=== PATIENT | female | born 1965 | race Caucasian/White ===

== ENCOUNTER → 2021-05-23 08:58 | Outpatient (CLI) | payer OTHER, SELFPAY ==
--- NOTE | ~2021-05-23 | US_ITS ---
EXAMINATION: US transvaginal EXAM DATE: 05/23/2021 09:39 INDICATION: Postmenopausal bleeding. TECHNIQUE: Pelvic transvaginal sonogram was performed. There are multiple grayscale and Doppler imag es available for interpretation. There is no prior study for comparison. FINDINGS: Uterus measures 6.6 x 3.4 x 4.6 cm, is anteverted and morphologically normal. Endometrial stripe measures 1-2 mm, within normal limits. There is no free pelvic fluid. Right adnexa: The ovary is not identified. There is no adnexal mass. Left adnexa: The ovary is not identified. There is no adnexal mass. IMPRESSION: Unremarkable uterus. Reviewed, dictated and finalized at location A. GAGE ANALYST IMPRESSION: Unremarkable uterus.
== END ==
PROVIDERS: Visit Provider Obstetrics & Gynecology Gynecology
DX: N95.0 Postmenopausal bleeding (principal)
CPT/HCPCS: 76830

== ENCOUNTER → 2021-07-02 15:28 | Outpatient (CLI) | payer OTHER, SELFPAY ==
--- NOTE | ~2021-07-02 | MM_ITS ---
EXAMINATION: MM screening [facility] BI w enrrique HISTORY: Screening mammogram TECHNIQUE: Craniocaudal and mediolateral oblique 3-D tomosynthesis images were obtained and synthetic 2-D images were generated. CAD analysis was submitted and interpreted. COMPARISON: 10/12/2018, 02/14/2018, 02/08/2018 BREAST PARENCHYMAL COMPOSITION: The breasts are extremely dense, which lowers the sensitivity of mamm ography. FINDINGS: There is no evidence of suspicious mass, calcification, or architectural distortion to sugg est malignancy in either breast. There has been no suspicious interval change. IMPRESSION: 1. No mammographic evidence of malignancy. 2. Recommend routine screening mammography in one year. BI-RADS Category 1: Negative Reviewed, dictated and finalized at location A. IGN CORRESPONDENT
== END ==
PROVIDERS: Visit Provider Nurse Practitioner
DX: Z12.31 Encounter for screening mammogram for malignant neoplasm of breast (principal)
CPT/HCPCS: 77063; 77067

== ENCOUNTER → 2021-08-27 10:11 | Outpatient (CLI) | payer OTHER, SELFPAY ==
--- NOTE | ~2021-08-27 | DEXA_ITS ---
Bone Density Report Name: PATSY RIVAS Age: 56 Sex: Female Ethnicity: White Date of : 1965 Indication: postmenopausal; screening for osteoporosis; height loss; Referring Provider: GARRICK, ZHAO Study: Bone densitometry was performed. Exam Date: August 27, 2021 Accession number: [id number] Bone Density: Region BMD T-score Z-score Classification AP Spine (L1-L4) 0.875 -1.6 -0.4 Osteopenia Femoral Neck (Left) 0.665 -1.7 -0.5 Osteopenia Total Hip (Left) 0.820 -1.0 -0.2 Normal Femoral Neck (Right) 0.735 -1.0 0.1 Normal Total Hip (Right) 0.877 -0.5 0.3 Normal Total Hip Mean 0.849 -0.8 0.1 Normal World Health Organization criteria for BMD impression classify patients as: Normal (T-score at or above -1.0), Osteopenia (T-score between -1.0 and -2.5), or Osteoporosis (T-score at or below -2.5). 10-year Fracture Risk(1): Major Osteoporotic Fracture 7.2% Hip Fracture 0.7% Reported Risk Factors: [place] (), Neck BMD=0.665, BMI=22.8 (1) FRAX(R) Version 3.08. Fracture probability calculated for an untreated patient. Fracture probability may be lower if the patient has received treatment. Previous Exams: Region Exam Age BMD T-score BMD Change BMD Change Date g/cm2 vs Baseline vs Previous AP Spine(L1-L4) 08/27/2021 56 0.875 -1.6 -0.133* -0.133* 10/30/2015 50 1.008 -0.4 Total Hip(Left) 08/27/2021 56 0.820 -1.0 -0.099* -0.099* 10/30/2015 50 0.919 -0.2 Total Hip(Right) 08/27/2021 56 0.877 -0.5 -0.096* -0.096* 10/30/2015 50 0.973 0.3 *Denotes significance at 95% confidence level, LSC for AP Spine = 0.022 g/cm2, LSC for Total Hip = 0.027 g/cm2 Clinical Information Provided by Patient: Has used the following medications: Vitamin D Patient maximum height was 68.5 Menopause Age: 51 Does not regularly consume dairy products Drinks caffeinated beverages Onset of menses at age 13 Number of children 2 Impression: The patient has low bone mass, based on the Left Femoral Neck T-score. The patient has an estimated ten-year risk of hip fracture of 0.7% and an estimated ten-year risk of major fracture of 7.2%, based on the WHO FRAX algorithm. The BMD for the AP Spine(L1-L4) decreased, changing by -0.133 since the last DXA exam. The BMD for the Total Hip(Left) decreased, changing by -0.099 since the last DXA exam. The BMD for the Total Hip(Right) decreased, changing by -
== END ==
PROVIDERS: Visit Provider Nurse Practitioner
DX: Z78.0 Asymptomatic menopausal state (principal); Z13.820 Encounter for screening for osteoporosis; M85.88 Other specified disorders of bone density and structure, other site; M85.852 Other specified disorders of bone density and structure, left thigh
CPT/HCPCS: 77080

== ENCOUNTER → 2021-11-19 14:18 | Outpatient (CLI) | payer OTHER, SELFPAY ==
--- NOTE | ~2021-11-19 | CT_ITS ---
EXAMINATION: CT pelvis wo/w con DATE: 11/19/2021 14:54 INDICATION: Pelvic mass. TECHNIQUE: Computed tomography (CT) of the pelvis was performed without and with 100 mL Omnipaque 300 intravenous contrast. Automated exposure control and iterative reconstruction technique were employe d. The dose-length product was 670.25 mGy-cm. COMPARISON: None FINDINGS: There are no dilated loops of bowel. There is a moderate volume of stool in the colon. Ther e are no pathologically enlarged lymph nodes. There is no free intraperitoneal fluid. There is mild l umbar spondylosis. IMPRESSION: 1. No abnormal mass. Reviewed, dictated and finalized at location A. IMPRESSION: 1. No abnormal mass.
== END ==
PROVIDERS: PCP Internal Medicine; Visit Provider Nurse Practitioner
DX: R19.00 Intra-abdominal and pelvic swelling, mass and lump, unspecified site (principal)
CPT/HCPCS: 72194; Q9967

== ENCOUNTER → 2023-08-19 15:33 | Outpatient (CLI) | payer OTHER, SELFPAY ==
--- NOTE | ~2023-08-19 | MM_ITS ---
EXAMINATION: MM screening [facility] BI w enrrique HISTORY: Screening mammogram TECHNIQUE: Craniocaudal and mediolateral oblique 3-D tomosynthesis images were obtained and synthetic 2-D images were generated. CAD analysis was submitted and interpreted. COMPARISON: 07/02/2021, 10/12/2018, 02/14/2018, 02/08/2018 BREAST PARENCHYMAL COMPOSITION: The breasts are extremely dense, which lowers the sensitivity of mamm ography. FINDINGS: No suspicious mass, calcification, or architectural distortion are identified in either fausto ast to suggest malignancy. There has been no suspicious interval change. IMPRESSION: 1. No mammographic evidence of malignancy. 2. Recommend routine screening mammography in one year. BI-RADS Category 1: Negative Reviewed, dictated and finalized at location A. T OFFICE HELP
== END ==
PROVIDERS: PCP Obstetrics & Gynecology Gynecology; Visit Provider Obstetrics & Gynecology Gynecology
DX: Z12.31 Encounter for screening mammogram for malignant neoplasm of breast (principal)
CPT/HCPCS: 77063; 77067

== ENCOUNTER 2024-05-15 11:56 | Outpatient (CLI) | payer OTHER, SELFPAY ==
--- NOTE | ~2024-05-15 | DEXA_ITS ---
Bone Density Report Name: PATSY RIVAS Age: 58 Sex: Female Ethnicity: White Date of : 1965 Indication: postmenopausal; screening for osteoporosis; Referring Provider: Stormy Jaime Study: Bone densitometry was performed. Exam Date: May 15, 2024 Accession number: [id number] Bone Density: Region BMD T-score Z-score Classification AP Spine(L1-L4) 0.911 -1.2 0.2 Osteopenia Femoral Neck (Left) 0.681 -1.5 -0.2 Osteopenia Total Hip (Left) 0.800 -1.2 -0.2 Osteopenia Femoral Neck (Right) 0.748 -0.9 0.4 Normal Total Hip (Right) 0.869 -0.6 0.3 Normal Femoral Neck Mean 0.714 -1.2 0.1 Osteopenia Total Hip Mean 0.834 -0.9 0.0 Normal World Health Organization criteria for BMD impression classify patients as: Normal (T-score at or above -1.0), Osteopenia (T-score between -1.0 and -2.5), or Osteoporosis (T-score at or below -2.5). 10-year Fracture Risk(1): Major Osteoporotic Fracture 7.5% Hip Fracture 0.7% Reported Risk Factors: [place] (), Neck BMD=0.681, BMI=22.2 (1) FRAX(R) Version 3.08. Fracture probability calculated for an untreated patient. Fracture probability may be lower if the patient has received treatment. Clinical Information Provided by Patient: Has used the following medications: Vitamin D, Calcium Patient maximum height was 68.5 Menopause Age: 53 Onset of menses at age 15 Number of children 2 Impression: The patient has low bone mass, based on the Left Femoral Neck T-score. Discussion: BONE DENSITY IS LOW AT ONE OR MORE SKELETAL SITES. This patient's lowest T-score is low at one or more skeletal sites. It meets the World Health Organization's (WHO) criteria for ?low bone mass? (T-score between -1.0 and -2.5). The patient's 10-year risk of fracture as calculated by FRAX is less than the threshold where pharmacological therapy is recommended by the National Osteoporosis Foundation (NOF). However, all treatment decisions require clinical judgment and consideration of individual patient factors, including patient preferences, comorbidities, previous drug use, risk factors not captured in the FRAX model (e.g., frailty, falls, vitamin D deficiency, increased bone turnover, interval significant decline in bone density) and possible under or overestimation of fracture risk by FRAX. The patient should follow a healthful lifestyle (good nutrition with adequate calcium and vitamin D, and appropriate weight-bearing exercise). Follow-Up: Consider repeating this study in 2 to 3 years to reassess this patient's status, or sooner if there is some new clinical indication. Reported by: YOLETTE on 05/15/2024 12:29:00 PM. Reviewed, dictated and finalized at location A.
== END 2024-05-15 11:57 | disposition home or self-care (01) ==
PROVIDERS: PCP Internal Medicine; Visit Provider Advanced Practice Midwife
DX: Z78.0 Asymptomatic menopausal state (principal); M85.89 Other specified disorders of bone density and structure, multiple sites
CPT/HCPCS: 77080

== ENCOUNTER 2024-09-05 10:55 | Outpatient (CLI) | payer OTHER, SELFPAY ==
--- NOTE | ~2024-09-05 | US_ITS ---
US transvaginal Ordering provider: Althea Jane, PASTORAL COUNSELOR History: . LEFT SIDE PELVIC MASS . Comparison: None. Technique: endovaginal ultrasound of the pelvis (Doppler ultrasound interrogation techniques used as needed for this exam.) FINDINGS: CERVIX: Normal. UTERUS: Measures 7.9x 3.4x 5 cm in length which is within normal limits and is anteverted. No myomet rial masses. ENDOMETRIUM: Normal in thickness measuring 4 mm. No endometrial masses, cysts or fluid. CUL DE SAC: No free fluid. RIGHT OVARY: Not visualized. LEFT OVARY: Not visualized. ADNEXA: Normal. No mass. Prominent vessels are probably seen. IMPRESSION: Ovaries are not visualized. Otherwise, normal pelvic ultrasound. If still suspicious CT is advised. Reviewed, dictated and finalized at location A. RMATION SECURITY ANALYST IMPRESSION: Ovaries are not visualized. Otherwise, normal pelvic ultrasound. If still suspi cious CT is advised.
== END 2024-09-05 10:56 | disposition home or self-care (01) ==
LOC: MICIMG 10:55
PROVIDERS: PCP Nurse Practitioner; Visit Provider Nurse Practitioner
DX: R19.09 Other intra-abdominal and pelvic swelling, mass and lump (principal)
CPT/HCPCS: 76830

== ENCOUNTER 2024-09-21 14:30 | Outpatient (CLI) | payer OTHER, SELFPAY ==
--- NOTE | ~2024-09-21 | CT_ITS ---
CLINICAL INDICATION: Left-sided pelvic mass on physical examination. COMPARISON: 11/19/2021. Reference is also made to a transvaginal ultrasound dated 09/05/2024 and dating back to 05/23/2021 TECHNIQUE: Computed tomography (CT) of the pelvis was performed without intravenous contrast. The dos e-length product was 322.07 mGy-cm. FINDINGS/OBSERVATIONS: Marked enlargement of the left gonadal vein, abnormally dilated and tortuous measuring 10.2 mm in gre atest caliber. The left gonadal vein extends into the pelvis draining multiple varicosities, findings consistent with pelvic congestion syndrome for which clinical correlation is needed. Marked enlargement of the right gonadal vein which drains into the inferior vena cava and also demons trates multiple varicosities within the pelvis, although to a lesser extent than the left gonadal vei n. In addition, filling of a vulvovaginal varicosities are also present, left greater than right, als o consistent with pelvic congestion syndrome. Of note, imaging of the patient's thighs were not inclu ded. Moderate fecal stasis. The bladder is decompressed. The uterus is anteverted and anteflexed. No additional abnormalities are detected. IMPRESSION: Ovarian vein diameter greater than 10 mm in the supine position with the uterine vein engorgement, co ngestion of the ovarian plexi and filling of the vulvovaginal varicosities -all are findings which a re consistent with pelvic congestion syndrome. Referral to Interventional Radiology is recommended for resolution of patient's symptoms. Thank you for the opportunity to assist in the care of your patient. For questions or concerns regarding this interpretation, please reach out to me directly at [phone]. Reviewed, dictated and finalized at location A. IMPRESSION: Ovarian vein diameter greater than 10 mm in the supine position with the uterin e vein engorgement, congestion of the ovarian plexi and filling of the vulvovag inal varicosities -all are findings which are consistent with pelvic congestio n syndrome. Referral to Interventional Radiology is recommended for resolution of patient's symptoms. Thank you for the opportunity to assist in the care of your patient. For questions or concerns regarding this interpretation, please reach out to me directly at [phone].
[2024-09-21 14:45] LABS: Estimated Glomerular Filt Rate > 60
== END 2024-09-21 14:31 | disposition home or self-care (01) ==
LOC: MICIMG 14:31
PROVIDERS: PCP Internal Medicine; Visit Provider Obstetrics & Gynecology Gynecology
DX: R19.00 Intra-abdominal and pelvic swelling, mass and lump, unspecified site (principal)
CPT/HCPCS: 72193; Q9967

== ENCOUNTER 2024-12-24 01:20 | Day surgery (SDC) | payer OTHER, SELFPAY ==
[2024-12-10 13:07] VITALS: BMI 25.7
[2024-12-24 10:28] VITALS: BP 137/95; PULSE 89; RESP 18; TEMP 36.8; O2SAT 100
[2024-12-24] MEDS: LACTATED RINGERS 1,000 ML 150 ML IV CONT (10:37)
--- NOTE | 2024-12-24 10:54 | P.PNAN_ITS ---
Anes - Initial Pre Proc Eval Procedure: Operation Date: 12/24/24 11:30 Proposed Procedures p Screening Colonoscopy - Eliecer Morales MD Date/Time: 12/24/24 10:54 Surgeon: Eliecer Morales MD Pre Op Diagnosis: Screening Patient Data Age: 59 Gender: F Height: 1.6 m Weight: 64.8 kg Last Vital Signs Temp 36.8 C 12/24/24 10:28 Pulse 89 12/24/24 10:28 Resp 18 12/24/24 10:28 BP 137/95 H 12/24/24 10:28 Pulse Ox 100 12/24/24 10:28 O2 Del Method Room Air 12/24/24 10:28 Allergies Allergy/AdvReac Type Severity Reaction Status Date / Time latex AdvReac Other Verified 12/24/24 10:40 Home Medications ?Medication ?Instructions ?Recorded ?Confirmed ?Type meloxicam 15 mg tablet 15 mg PO 12/24/24 History Patient hx anesthesia problems: none Family hx anesthesia problems: none Results Review: All pre-operative results and documents have been reviewed as part of the pre- operative evaluation. [facility] Past Medical History Medical History (Updated 12/24/24 @ 10:58 by Lauro Hassan DO) MATEO (obstructive sleep apnea) mild - no intervention necessary DVT (deep venous thrombosis) during - 1996 Family History Family History (Updated 04/20/18 @ 09:46 by DOCTOR UNKNOWN) Father Family history of emphysema Other Carcinoma of colon Family history of coronary artery disease Social History Social History Smoking status: Never smoker Second hand tobacco smoke exposure: No Alcohol intake: current Drinks per week: 3 Substance use: never Substance use type: does not use Living arrangements: with family Spiritual care concerns: No Anes - Eval Final PreProcedure Day of Procedure 12/24/24 10:54 Patient weight: overweight Heart: regular rate and rhythm Lungs: clear to auscultation Airway: Mallampati scale class II Neurological: alert and oriented Last oral intake: >/= 8 hours ASA classification: II Emergent: no Anesthetic plan: proceed Anesthesia type and monitoring: general GIVS and standard monitoring Results Review: All pre-operative results and documents have been reviewed as part of the pre- operative evaluation. Informed Consent: The patient's anesthetic plan and its attendant risks and benefits were discuss ed with the patient/family/POA. Questions were solicited and answers provided to the satisfaction of the patient/family/POA.
--- NOTE | 2024-12-24 11:30 | PM.HPGS ---
History of Present Illness History of Present Illness Consent: Risks, benefits, and alternatives have been discussed and questions answered. Patient agrees to proceed with procedure. Chief complaint: Screening Narrative: Sherron Cheatham is a 59 year old female here for screening colonoscopy, last one 10 years ago Review of Systems Review of Systems: All systems reviewed & are unremarkable except as noted in HPI and below PMFSH Past Medical History Medical History (Updated 12/24/24 @ 11:31 by Eliecer Morales MD) Colon cancer screening MATEO (obstructive sleep apnea) mild - no intervention necessary DVT (deep venous thrombosis) during - 1996 Family History Family History (Updated 04/20/18 @ 09:46 by DOCTOR UNKNOWN) Father Family history of emphysema Other Carcinoma of colon Family history of coronary artery disease Social History Social History Smoking status: Never smoker Second hand tobacco smoke exposure: No Alcohol intake: current Drinks per week: 3 Substance use: never Substance use type: does not use Living arrangements: with family Spiritual care concerns: No Meds Home Medications and Allergies Home Medications ?Medication ?Instructions ?Recorded ?Confirmed ?Type meloxicam 15 mg tablet 15 mg PO 12/24/24 History Allergies Allergy/AdvReac Type Severity Reaction Status Date / Time latex AdvReac Other Verified 12/24/24 10:40 Vital Signs Vital Signs - 24 hr 12/24/24 10:28 Temperature 98.2 F Pulse Rate 89 Respiratory Rate 18 Blood Pressure 137/95 H Pulse Oximetry 100 Oxygen Delivery Room Air Exam Const: General: comfortable and no acute distress HENMT: Face/Nose/Sinus: Normal nares present Eyes: General: appearance normal, both eyes and all related structures Neck: Neck: no JVD Resp: Auscultation: clear to auscultation bilaterally Cardio: Rate: regular rate Rhythm: regular rhythm GI: Inspection: non-distended GI Palp: Yes Soft to palpation Skin: General skin exam: normal color Neuro: Speech: normal speech Extrem: General: normal to inspection Psych: Mental Status: mental status grossly normal Assessment and Plan Assessment and plan (1) Colon cancer screening: Code(s): Z12.11 - Encounter for screening for malignant neoplasm of colon Status: Acute Assessment and Plan: colonoscopy
[2024-12-24 11:48] VITALS: BP 105/75; PULSE 80; RESP 18; O2SAT 100
[2024-12-24 11:58] VITALS: BP 101/74; PULSE 74; RESP 20; O2SAT 100
[2024-12-24 12:08] VITALS: BP 121/74; PULSE 71; RESP 16; O2SAT 100
== END 2024-12-24 12:18 | disposition home or self-care (01) ==
PROVIDERS: PCP Internal Medicine; Referring Provider Nurse Practitioner; Visit Provider Internal Medicine Gastroenterology
PROC: 0DJD8ZZ Inspection of Lower Intestinal Tract, Via Natural or Artificial Opening Endoscopic (ICD-10-PCS; CPT 45378; principal; 2024-12-24 11:30)
DX: Z12.11 Encounter for screening for malignant neoplasm of colon (principal)
CPT/HCPCS: 45378; J2704; J7120